=== PATIENT | female | born 1980 | race Asian ===

== ENCOUNTER → 2023-03-27 15:36 | Outpatient (REF) | payer OTHER, SELFPAY | LOC: WDC 15:36 | PROVIDERS: ATTENDING PHYSICIAN Obstetrics & Gynecology; FAMILY PHYSICIAN Family Medicine | DX: R92.2 Inconclusive mammogram (principal); Z12.31 Encounter for screening mammogram for malignant neoplasm of breast | CPT/HCPCS: 77061; 77065 ==

== ENCOUNTER → 2023-04-03 09:35 | Outpatient (REF) | payer OTHER, SELFPAY | LOC: WDC 09:35 | PROVIDERS: ATTENDING PHYSICIAN Obstetrics & Gynecology; FAMILY PHYSICIAN Family Medicine | DX: R92.8 Other abnormal and inconclusive findings on diagnostic imaging of breast (principal) | CPT/HCPCS: 76642 ==

== ENCOUNTER → 2023-11-11 13:25 | Outpatient (REF) | payer OTHER, SELFPAY | LOC: WDC 13:25 | PROVIDERS: ATTENDING PHYSICIAN Obstetrics & Gynecology; FAMILY PHYSICIAN Family Medicine | DX: Z12.31 Encounter for screening mammogram for malignant neoplasm of breast (principal) | CPT/HCPCS: 77063; 77067 ==

== ENCOUNTER → 2024-02-12 07:51 | Outpatient (REF) | payer OTHER, SELFPAY | LOC: WDC 07:51 | PROVIDERS: ATTENDING PHYSICIAN Obstetrics & Gynecology; FAMILY PHYSICIAN Family Medicine | DX: R92.2 Inconclusive mammogram (principal) | CPT/HCPCS: 76641 ==

== ENCOUNTER 2024-08-06 06:09 | Day surgery (SDC) | payer OTHER, SELFPAY ==
[2024-07-23 11:06] LABS: Hematocrit 37.7 % (37.0-47.0); Hemoglobin 12.7 g/dL (12.0-16.0); Mean Corp Hgb Conc. 33.7 g/dL (33.0-37.0); Mean Corpuscular Hgb 27.7 pg (27.0-31.0); Mean Corpuscular Volume 82.3 fL (81.0-99.0); Platelet Count 266 10^3/uL (130-400); Red Blood Cell Count 4.58 10^6/uL (4.20-5.40); Red Cell Dist. Width 13.7 % (11.5-14.5); White Blood Cell Count 7.2 10^3/uL (4.8-10.8)
[2024-07-23 11:50] LABS: ALT (SGPT) 12 U/L (0-35); AST (SGOT) 19 U/L (14-36); Albumin 4.2 g/dl (3.5-5.0); Alkaline Phosphatase 34 U/L (38-126); Blood Urea Nitrogen 8 mg/dl (7-17); Calcium 9.2 mg/dl (8.4-10.2); Carbon Dioxide 22 mmol/L (22-30); Chloride 110 mmol/L (98-107); Glucose 94 mg/dl (70-99); Potassium 4.7 mmol/L (3.5-5.1); Sodium 140 mmol/L (135-145); Total Bilirubin 0.9 mg/dl (0.2-1.3); Total Protein 6.8 g/dl (6.3-8.2); eGFR > 60.00
[2024-07-23 11:51] LABS: Prealbumin (Transthyretin) 19.3 mg/dl (17.6-36.0)
[2024-07-23 12:04] LABS: Vitamin D, 25-OH*** 26.3 ng/mL (30-80)
[2024-07-23 14:08] VITALS: BMI 25.5
[2024-08-06] VITALS (7 sets, daily range): BP systolic 76–142; BP diastolic 64–90; BMI 25.5
--- NOTE | 2024-08-06 07:01 | W.SUR.PREOP ---
Pre-Operative Surgical Note
-
I have examined this patient prior to the performance of the scheduled procedure.
The patient's condition is unchanged from the time of the current History and
Physical and the patient is able to undergo the scheduled procedure.
[2024-08-06] MEDS: TYLENOL 1000 MG PO (07:15)
--- NOTE | 2024-08-06 13:48 | W.IMMPOSTOP ---
Surgical Immed Post Op Note
-
Primary Surgeon: Lolis
Assisting Surgeon: None
Pre-op Diagnosis: Left breast pathologic discharge and intraductal mass
Post-op Diagnosis: Same
Procedure Performed: Exploration left nipple areeolar complex and excision central duct and mass
Anesthesia Type: TIVA
Specimen / Cultures: Central duct and mass
Estimated Blood Loss: 2cc
Complications: None
Operative Findings: None
--- NOTE | 2024-08-06 13:50 | OR.RPT ---
Operative Report
Operative Report
Date of service: 08/06/2024
Preoperative diagnosis: Pathologic discharge left breast and intraductal mass
Postop diagnosis: Same
Surgeon: Lolis
Procedure: Exploration left nipple areolar complex and excision central duct and mass
The patient is a 44-year-old female who had experienced spontaneous pathologic discharge of the left nipple areolar complex. Imaging showed an intraductal mass in the left side around the 4 o'clock position and she presents now for exploration and
excision.
Patient presented to same-day surgical services where she was prepped. DVT and antibiotic prophylaxis were provided. The operative site was marked. She was taken to the operating room and in the supine position intravenous sedation was delivered.
The left breast was prepped and draped in the usual sterile fashion and an appropriate timeout was performed by all staff members.
All tissues were anesthetized with 1% lidocaine plain. A lateral circumareolar incision was made sharply with the blade. The nipple flap was elevated using the cautery and a dilated duct was encountered. It was transected and clear yellow
discharge emanated from the duct. This was suture-ligated and then the duct and surrounding tissue were excised down to chest wall fascia. Time out of body was noted and the specimen was oriented for the pathologistand sent for permanent analysis.
Hemostasis was verified. Marcaine 0.5% plain was instilled and the wound was closed using simple interrupted 3-0 plain on deep, intermediate, and
(30874) subcutaneous tissue and skin was closed with a running subcuticular 4-0 Monocryl. Surgical glue and sterile compressive dressings were applied. All sponge needle and instrument counts were correct and the patient was transferred to the
recovery room in stable condition
== END 2024-08-06 09:30 | disposition home or self-care (01) ==
LOC: SDS 06:09
PROVIDERS: ATTENDING PHYSICIAN Surgery; FAMILY PHYSICIAN Family Medicine; REFERRING PHYSICIAN Obstetrics & Gynecology
DX: D24.2 Benign neoplasm of left breast (principal); N64.52 Nipple discharge
CPT/HCPCS: 19110; 88307; 36415; 80053; 82306; 84134; 85027; 88342

== ENCOUNTER → 2025-02-03 07:34 | Outpatient (REF) | payer OTHER, SELFPAY | LOC: WDC 07:34 | PROVIDERS: ATTENDING PHYSICIAN Family Medicine | DX: Z12.31 Encounter for screening mammogram for malignant neoplasm of breast (principal) | CPT/HCPCS: 77063; 77067 ==

== ENCOUNTER → 2025-02-08 09:09 | Outpatient (REF) | payer OTHER, SELFPAY | LOC: WDC 09:09 | PROVIDERS: ATTENDING PHYSICIAN Family Medicine | DX: R92.8 Other abnormal and inconclusive findings on diagnostic imaging of breast (principal) | CPT/HCPCS: 76642 ==